=== PATIENT | female | born 1995 | race Two or more races ===

== ENCOUNTER 2020-09-09 21:59 | Emergency (ER) | payer SELFPAY ==
[~2020-09-09] VITALS: Ht 160 cm; Wt 59.0 kg
--- NOTE | 2020-09-09 22:03 | NUR ---
PT AAOX4. BIBRA FROM A RESTRUATN DUE TO ETOH. PT AMBULATORY WITH STEADY GAIT. STATING HER BROTHER IS OUTSIDE WANTING TO PICK HER UP. PT PLACED ON MONITOR AND PULSE OX. VSS. NO ACUTE DISTRESS NOTED.
--- NOTE | 2020-09-09 22:51 | NUR ---
PT REQUESTING TO LEAVE. PT AMBULATORY WITH STEADY GAIT. VSS. AMBULATED TO THE RESTROOM THEN TO THE NURSING STATION.
--- NOTE | 2020-09-09 23:01 | NUR ---
PT AMBULATED OUT OF E.D. VSS.
[2020-09-09 23:24] VITALS: BP 114/69
== END 2020-09-09 23:10 | disposition home or self-care (01) ==
LOC: ER 22:00
DX: F10.129 Alcohol abuse with intoxication, unspecified (principal); Y90.9 Presence of alcohol in blood, level not specified; Z02.89 Encounter for other administrative examinations